=== PATIENT | male | born 1990 | race Caucasian/White ===

== ENCOUNTER 2021-05-31 23:37 | Emergency (ER) | payer SELFPAY ==
[2021-06-01 00:07] LABS: HEMOGLOBIN 15.2 gm/dl (14.0-17.5); RED BLOOD COUNT 4.81 M/UL (4.20-5.50); WHITE BLOOD COUNT 11.9 K/UL (4.5-11.0)
[2021-06-01 00:28] LABS: BUN/CREATININE RATIO 9 (0-10)
== END 2021-06-01 02:00 | disposition home or self-care (01) ==
LOC: ER1 23:37
PROVIDERS: Emergency Medicine
DX: F45.8 Other somatoform disorders (principal); Z20.822 Contact with and (suspected) exposure to COVID-19
CPT/HCPCS: 70360; 80053; 85025; 93005; 99284; U0002

== ENCOUNTER 2021-06-23 22:01 | Emergency (ER) | payer SELFPAY ==
[2021-06-23 22:31] LABS: HEMOGLOBIN 13.1 gm/dl (14.0-17.5); RED BLOOD COUNT 4.14 M/UL (4.20-5.50); WHITE BLOOD COUNT 9.7 K/UL (4.5-11.0)
[2021-06-23 22:55] LABS: BUN/CREATININE RATIO 16 (0-10)
== END 2021-06-24 01:07 | disposition home or self-care (01) ==
LOC: ER1 22:01
PROVIDERS: Emergency Medicine
DX: F19.921 Other psychoactive substance use, unspecified with intoxication with delirium (principal)
CPT/HCPCS: 70450; 80053; 80307; 81001; 82140; 85025; 93005; 99285; G0480